=== PATIENT | male | born 1995 | race Caucasian/White ===

== ENCOUNTER 2024-07-21 20:11 | Emergency (ER) | payer SELFPAY ==
[2024-07-21 20:26] VITALS: BP 166/94; PULSE 71; TEMP 36.7; O2SAT 98; BMI 20.5
--- NOTE | 2024-07-21 22:55 | PC.NURSE ---
2240: Patient's name called from waiting room by this nurse four times with no answer.
== END 2024-07-21 23:17 | disposition left against medical advice (07) ==
PROVIDERS: Emergency Provider Family Medicine; PCP Nurse Practitioner Family
DX: Z53.21 Procedure and treatment not carried out due to patient leaving prior to being seen by health care provider (principal)